=== PATIENT | female | born 1950 | race Caucasian/White ===

== ENCOUNTER 2021-06-11 15:28 | Observation (INO) ==
[2021-06-11] MEDS ORDERED: Naloxone 0.4 MG/ML INJ IVP PRN (17:30)
[2021-06-11] MEDS ORDERED: Ondansetron 4 MG/2 ML VIAL IVP PRN (17:30)
[2021-06-11] MEDS ORDERED: Dextrose Gel 15 GM/37.5 ML TUBE PO PRN ×2 (17:45)
[2021-06-11] MEDS ORDERED: D5% in Water 1,000 ML IVC PRN (17:45)
[2021-06-11] MEDS ORDERED: *HR* Dextrose 50 % in Water (Syg) 50 ML SYRINGE IVP PRN (17:45)
[2021-06-11 18:42] LABS: Basophils % 0.6 %; Eosinophils # 0.2 K/mcL (0.0-0.6); Eosinophils % 3.7 %; Hematocrit 42.1 % (35.3-44.9); Hemoglobin 13.4 g/dL (11.5-15.4); Immature Granulocytes % 0.2 % (0-4); Lymphocytes # 0.8 K/mcL (0.6-4.6); Lymphocytes % 17.3 %; Mean Corpuscular HGB Conc 31.8 g/dL (31.6-35.5); Mean Corpuscular Volume 88.1 fL (83.0-100.0); Mean Platelet Volume 9.9 fL (9.4-12.4); Monocytes # 0.5 K/mcL (0.0-1.3); Monocytes % 9.9 %; Neutrophils # 3.2 K/mcL (1.6-8.9); Platelet Count 275 K/mcL (140-400); Red Blood Count 4.78 M/mcL (3.82-4.97); Red Cell Distribution Width 12.7 % (11.5-14.5); Segmented Neutrophils % 68.3 %; White Blood Count 4.6 K/mcL (4.3-11.1)
[2021-06-11 18:43] LABS: Prothrombin Time 11.4 Seconds (9.4-12.1)
[2021-06-11 18:45] LABS: Activated Partial Thrombo Time 33.6 Seconds (26.0-36.0)
[2021-06-11 18:56] LABS: Magnesium 2.2 mg/dL (1.6-2.6); Phosphorous 3.8 mg/dL (2.7-4.5)
[2021-06-11 18:58] LABS: Troponin I < 0.03 ng/mL (< 0.04)
[2021-06-11] MEDS: Acetaminophen 325 MG TABLET PO PRN (20:01)
[2021-06-12 01:53] LABS: Chol/HDL Ratio 4.9 (0-4.9)
[2021-06-12 01:54] LABS: Troponin I < 0.03 ng/mL (< 0.04)
[2021-06-12 02:05] LABS: Thyroid Stimulating Hormone 1.642 mcIU/mL (0.340-5.600)
[2021-06-12] MEDS ORDERED: Regadenoson 0.4 MG/5 ML SYRINGE IVP ONE (05:49)
[2021-06-12] MEDS ORDERED: *HR* Enoxaparin 40 MG/0.4 ML SYRINGE SQ SCH (06:00)
[2021-06-12] MEDS: Insulin LISPRO 300 UNITS/3 ML VIAL SUBQ SCH ×2 (07:11→13:08)
[2021-06-12] MEDS ORDERED: Aspirin Enteric Coated 81 MG Tablet PO SCH (09:00)
[2021-06-12] MEDS ORDERED: lisinopriL 20 MG TABLET PO SCH (09:00)
[2021-06-12] MEDS: Acetaminophen 325 MG TABLET PO PRN (09:44)
[2021-06-12 11:17] VITALS: BP 108/71; PULSE 67; TEMP 97.4; O2SAT 97
[2021-06-12] MEDS ORDERED: Isovue-370 500 ML BOTTLE IVP ONE (11:18)
[2021-06-12] MEDS ORDERED: Acetaminophen/Butalbital/CaffeineTABLET PO PRN (11:19)
== END 2021-06-12 15:38 | disposition home or self-care (01) ==
LOC: 3BNU → SUATTDRO 17:08
PROVIDERS: ADMIT Internal Medicine; ATTEND Internal Medicine

== ENCOUNTER 2021-11-25 15:39 | Observation (INO) ==
[2021-11-25] MEDS ORDERED: Ondansetron 4 MG/2 ML VIAL ONE (20:32)
[2021-11-25] MEDS ORDERED: Lidocaine -MPF 4% 5 ML AMPUL ONE (20:32)
[2021-11-25] MEDS ORDERED: Lidocaine -MPF 2% 5 ML VIAL ONE (20:32)
[2021-11-25] MEDS ORDERED: *HR* FentaNYL (PF) 100 MCG/2 ML VIAL ONE (20:32)
[2021-11-25] MEDS ORDERED: *HR* Propofol 200 MG/20 ML VIAL IVP ONE (20:32)
[2021-11-25] MEDS ORDERED: *HR* Rocuronium Bromide 50 MG/5 ML VIAL ONE (20:32)
[2021-11-25] MEDS ORDERED: Acetaminophen IV 1,000 MG/100 ML BAG IVPB ONE ×2 (21:00→21:04)
[2021-11-25] MEDS ORDERED: Ringers Solution, Lactated 1,000 ML IVC SCH (21:00)
[2021-11-25] MEDS ORDERED: Scopolamine Patch 1.5 MG PATCH.TD72 ONE (21:00)
[2021-11-25] MEDS ORDERED: Scopolamine Patch 1.5 MG PATCH.TD72 TD ONE ×3 (21:03→23:52)
[2021-11-25] MEDS ORDERED: Iopamidol - 300 50 ML VIAL ONE (21:14)
[2021-11-25] MEDS ORDERED: Piperacillin/Tazobactam 3.375 GM in 0.9 % Sodium Chloride Mini Bag 100 ML IVPB ONE (21:15)
[2021-11-25] MEDS ORDERED: *HR* HYDROMORPHONE 2 MG/ML VIAL ONE (21:58)
[2021-11-25] MEDS ORDERED: *HR* Labetalol 20 MG/4 ML SYRINGE IVP ONE (22:02)
[2021-11-25] MEDS ORDERED: Sugammadex Sodium 200 MG/2 ML VIAL IV ONE (22:33)
[2021-11-25] MEDS ORDERED: *HR* Metoprolol 5 MG/5 ML VIAL IVP ONE (23:16)
[2021-11-25] MEDS: *HR* Metoprolol 5 MG/5 ML VIAL IVP PRN ×2 (23:17→23:27)
[2021-11-25] MEDS ORDERED: Ondansetron 4 MG/2 ML VIAL IVP PRN (23:52)
[2021-11-25] MEDS ORDERED: 0.9 % Sodium Chloride 1,000 ML IVC SCH (23:52)
[2021-11-26] MEDS ORDERED: Naloxone 0.4 MG/ML INJ IVP PRN ×2 (00:04→00:06)
[2021-11-26] MEDS ORDERED: Melatonin 3 MG TABLET PO PRN (00:04)
[2021-11-26] MEDS ORDERED: *HR* Dextrose 50 % in Water (Syg) 50 ML SYRINGE IVP PRN ×2 (00:06→09:27)
[2021-11-26] MEDS ORDERED: D5% in Water 1,000 ML IVC PRN ×2 (00:06→09:27)
[2021-11-26] MEDS ORDERED: Dextrose Gel 15 GM/37.5 ML TUBE PO PRN ×4 (00:06→09:27)
[2021-11-26 02:14] LABS: Basophils % 0.2 %; Eosinophils % 0.1 %; Hematocrit 39.8 % (35.3-44.9); Hemoglobin 12.6 g/dL (11.5-15.4); Immature Granulocytes % 0.6 % (0-4); Lymphocytes # 0.2 K/mcL (0.6-4.6); Mean Corpuscular HGB Conc 31.7 g/dL (31.6-35.5); Mean Corpuscular Hemoglobin 28.3 pg (28.0-33.3); Mean Corpuscular Volume 89.2 fL (83.0-100.0); Monocytes # 0.3 K/mcL (0.0-1.3); Monocytes % 3.1 %; Neutrophils # 9.6 K/mcL (1.6-8.9); Platelet Count 306 K/mcL (140-400); Red Blood Count 4.46 M/mcL (3.82-4.97); Red Cell Distribution Width 13.9 % (11.5-14.5); White Blood Count 10.2 K/mcL (4.3-11.1)
[2021-11-26 02:24] LABS: Albumin 3.5 g/dL (3.5-5.7); Albumin/Globulin Ratio 1.1 (1.1-2.2); Bilirubin,Total 4.6 mg/dL (0.3-1.0); Calcium 9.2 mg/dL (8.6-10.3); Globulin 3.1 g/dL (2.4-3.5); Potassium 4.3 mEq/L (3.5-5.1); Total Protein 6.6 g/dL (6.4-8.9)
[2021-11-26] MEDS ORDERED: *HR* Metformin 500 MG TABLET PO SCH (09:00)
[2021-11-26] MEDS ORDERED: Ibuprofen 800 MG TABLET PO SCH (09:30)
[2021-11-26] MEDS: Piperacillin/Tazobactam 3.375 GM in 0.9 % Sodium Chloride Mini Bag 100 ML IVPB SCH ×2 (09:31→16:58)
[2021-11-26] MEDS: Insulin LISPRO 300 UNITS/3 ML VIAL SUBQ SCH ×3 (09:31→16:57)
[2021-11-26] MEDS: lisinopriL 20 MG TABLET PO SCH (09:32)
[2021-11-26 10:39] LABS: Amylase 44 Units/L (29-103); Lipase 51 Units/L (11-82)
[2021-11-27] MEDS: Piperacillin/Tazobactam 3.375 GM in 0.9 % Sodium Chloride Mini Bag 100 ML IVPB SCH ×2 (01:09→08:33)
[2021-11-27 05:58] LABS: Basophils % 0.4 %; Eosinophils # 0.1 K/mcL (0.0-0.6); Eosinophils % 0.9 %; Hematocrit 35.2 % (35.3-44.9); Hemoglobin 11.1 g/dL (11.5-15.4); Immature Granulocytes % 0.4 % (0-4); Lymphocytes # 0.9 K/mcL (0.6-4.6); Lymphocytes % 13.4 %; Mean Corpuscular HGB Conc 31.5 g/dL (31.6-35.5); Mean Corpuscular Hemoglobin 28.5 pg (28.0-33.3); Mean Corpuscular Volume 90.3 fL (83.0-100.0); Mean Platelet Volume 10.4 fL (9.4-12.4); Monocytes # 0.7 K/mcL (0.0-1.3); Neutrophils # 5.2 K/mcL (1.6-8.9); Nucleated Red Blood Cells 0.3 /100 WBC (0); Platelet Count 272 K/mcL (140-400); Red Cell Distribution Width 14.3 % (11.5-14.5); Segmented Neutrophils % 74.9 %; White Blood Count 6.9 K/mcL (4.3-11.1)
[2021-11-27 06:21] LABS: Alanine Aminotransferase 95 Units/L (7-52); Albumin 3.3 g/dL (3.5-5.7); Albumin/Globulin Ratio 1.3 (1.1-2.2); Alkaline Phosphatase 289 Units/L (34-104); Aspartate Amino Transferase 57 Units/L (13-39); BUN/Creatinine Ratio 26 (6-26); Bilirubin,Total 1.3 mg/dL (0.3-1.0); Blood Urea Nitrogen 24 mg/dL (8-23); Carbon Dioxide 25 mEq/L (23-29); Chloride 104 mEq/L (98-107); Globulin 2.6 g/dL (2.4-3.5); Glucose 121 mg/dL (70-105); Magnesium 1.8 mg/dL (1.6-2.6); Osmolality,Calculated 287 (280-300); Phosphorous 2.6 mg/dL (2.7-4.5); Potassium 4.2 mEq/L (3.5-5.1); Sodium 136 mEq/L (136-145); Total Protein 5.9 g/dL (6.4-8.9); eGFR For African Americans > 60 (> 60); eGFR For Non-African Americans 59 (> 60)
[2021-11-27 08:13] VITALS: BP 115/74; PULSE 68; TEMP 97.7; O2SAT 91
[2021-11-27] MEDS: lisinopriL 20 MG TABLET PO SCH (08:32)
[2021-11-27] MEDS ORDERED: *HR* HYDROcodone/Acet 5/325 mg TABLET PO ONE (10:21)
[2021-11-27] MEDS: Insulin LISPRO 300 UNITS/3 ML VIAL SUBQ SCH (10:33)
== END 2021-11-27 12:42 | disposition home or self-care (01) ==
LOC: 3ANU → SUATTDRO 19:11
PROVIDERS: ADMIT Internal Medicine; ATTEND Internal Medicine